=== PATIENT | female | born 1990 | race Caucasian/White ===

== ENCOUNTER 2025-02-07 19:34 | Emergency (ER) | payer OTHER, SELFPAY ==
[2025-02-07 19:35] VITALS: BMI 26.6
[2025-02-07 19:50] VITALS: BP 105/67; PULSE 116; RESP 18; TEMP 37.3; O2SAT 97
--- NOTE | 2025-02-07 19:55 | EDNOTE_ITS ---
ED Weakness RME/HPI General Chief complaint: Weakness Stated complaint: FEELS LETHARGIC , DX WITH KIDNEY STONES SATURDAY Time Seen by Provider: 02/07/25 19:41 Source: patient, RN notes reviewed and old records reviewed Arrival date/time: 02/07/25 19:34 Mode of arrival: ambulatory Limitations: no limitations RME / HPI RME / HPI Narrative: 35yof presents to ED for generalized weakness and nausea that initiated yesterday. Patient reports she was diagnosed with 2mm kidney stone in outside ED 2 days ago. Right flank pain completely resolved, denies any abdominal/flank pain at this time. Reports mild dysuria that initiated this evening. No fever, vomiting or hematuria reported. Denies cough, shortness of breath, chest pain, dizziness or syncope. 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 ?Medication ?Instructions ?Recorded cefdinir 300 mg capsule 300 mg PO BID 10 days #20 ca ps 02/08/25 ondansetron 4 mg disintegrating 4 mg PO Q6H PRN nausea and 02/08/25 tablet vomiting #10 tabs Allergies Allergy/AdvReac Type Severity Reaction Status Date / Time No Known Allergies Allergy Verified 02/07/25 19:39 Review of Systems Review of Systems Systems Reviewed: All systems reviewed, normal except as documented Constitutional Constitutional: Denies chills, Reports fatigue, Denies fever(s) and Reports he adache(s) Comments: Reports generalized weakness ENT Ears, Nose, Mouth, and Throat: Reports headache(s), Denies nasal congestion and Denies vertigo Cardiovascular Cardiovascular: Denies chest pain, Denies dyspnea and Denies syncope Respiratory Respiratory: Denies cough and Denies dyspnea Gastrointestinal Gastrointestinal: Denies abdominal pain, Denies diarrhea, Reports nausea and Denies vomiting Genitourinary Genitourinary: Reports dysuria, Denies flank pain and Denies hematuria Musculoskeletal Musculoskeletal: Reports myalgias Neurologic Neurologic: Reports headache(s), Denies syncope and Denies vertigo Endocrine Endocrine: Reports fatigue Past Medical History Surgical History SURGICAL: Positive Hysterectomy Social History SMOKING STATUS: Never smoker SUBSTANCE USE: does not use ALCOHOL: Never Past Medical History Comments PMH COMMENT: denies pmhx ED Exam General Limitations: Present no limitations General appearance: Present alert and in no apparent distress Head Head exam: Present atraumatic and normocephalic Eye Eye exam: Present normal appearance, PERRL and EOMI ENT ENT exam: Present normal exam and mucous membranes moist Neck Neck exam: Present normal inspection and full ROM Chest Chest inspection: Present normal inspection and symmetric chest wall rise Respiratory Respiratory exam: Present normal lung sounds bilaterally; Absent respiratory distress Cardiovascular Cardiovascular exam: Present normal rhythm and tachycardia (Mild) Abdominal Exam Abdominal exam: Present soft; Absent distention, tenderness, guarding or rebound Extremities Exam Extremities exam: Present normal inspection and full ROM Back Exam Back exam: Absent CVA tenderness (R) or CVA tenderness (L) Neurological Exam Neurological exam: Present alert and oriented X3 Psychiatric Psychiatric exam: Present normal affect and normal mood Skin Skin exam: Present warm, dry, intact and normal color Course Course Course Narrative: 2119: Patient reassessed. Resting comfortably in ED bed, feels a little better. UA negative for infection, 2+ ketones. WBC elevated to 33. This may be related to recent stress response versus dehydration. However will order CXR and CT abdomen/pelvis in setting of recent stone to rule out infection. Lactate, procal and cultures also ordered. 2299: Sepsis called by RN at this time however, patient's lactate is negative. Quality Measures none Orders Category Date Time Status Bedside COVID-19 Antigen Test NOW Care 02/07/25 19:54 Completed Bedside Influenza A&B Antigen Test NOW Care 02/07/25 19:[address] Screening NOW Care 02/07/25 21:23 Completed IV [Insert IV] NOW Care 02/07/25 20:[address] abdomen pelvis w con Stat Exams 02/07/25 21:22 Completed CXR2 [XR chest 2V] Stat Exams 02/07/25 21:22 Completed Blood Culture (Lab) Stat Lab 02/07/25 21:41 Received CBC Stat Lab 02/07/25 20:09 Completed CMP [Comprehensive Metabolic Panel] Stat Lab 02/07/25 20:09 Completed Lactate (Lactic Acid) Stat Lab 02/07/25 21:38 Completed Procalcitonin Stat Lab 02/07/25 21:38 Completed UA [Urinalysis] Stat Lab 02/07/25 20:40 Completed Urine Culture Stat Lab 02/07/25 20:40 Received Acetaminophen Tab [Tylenol ES Tab] Med 02/07/25 20:15 Discontinued 1,000 mg PO X1 ONE Cefdinir [Omnicef] Med 02/08/25 00:12 Discontinued 300 mg PO X1 ONE Ondansetron Inj [Zofran Inj] Med 02/07/25 19:56 Discontinued 4 mg IV X1 ONE Potassium Chloride [K-Dur] Med 02/07/25 20:52 Discontinued 40 meq PO X1 ONE Sodium Chloride 0.9% 1000 ml [Ns] 1,000 ml Med 02/07/25 19:56 Discontinued IV 999 mls/hr Sodium Chloride 0.9% 1000 ml [Ns] 1,000 ml Med 02/07/25 21:30 Discontinued IV 999 mls/hr cephALEXin [Keflex] Med 02/08/25 00:44 Discontinued 500 mg PO X1 ONE Vital Signs Vital signs: Vital Signs Temperature 99.2 F 02/07/25 19:50 Pulse Rate 116 H 02/07/25 19:50 Respiratory Rate 18 02/07/25 19:50 Blood Pressure 105/67 02/07/25 19:50 Pulse Oximetry (%) 97 02/07/25 19:50 Oxygen Delivery Method Room Air 02/07/25 19:50 Weakness MDM Narrative MDM Narrative:: 35yof presents to ED for generalized weakness and nausea that initiated yesterday. Patient reports she was diagnosed with 2mm kidney stone in outside ED 2 days ago. Right flank pain completely resolved, denies any abdominal/flank pain at this time. Reports mild dysuria that initiated this evening. No fever, vomiting or hematuria reported. Denies cough, shortness of breath, chest pain, dizziness or syncope. 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 Updated on all labs and imaging. Will treat for pyelonephritis, UA negative for leuks and nitrates. Patient is nontoxic-appearing, afebrile, vitals are stable. Labs and exam reassuring. Encouraged adequate fluids, symptomatic treatment prn. Stable for discharge, RTED precautions given Patient data External records reviewed:: None (No prior visits) Clinical information provided by:: patient and parent Social determinants that could affect healthcare access:: none Patient has the following chronic illnesses:: None How is presenting disease/condition affected by chronic disease/condition?: no chronic disease Evaluation data The following diagnostics were reviewed and interpreted by me:: lab results and radiology exam(s) Lab and/or radiology exams considered but not ordered:: None Interpretation Summary: lactate 1.1 wbc 33 k 3.2 procal 1.3, mild elevation UA negative leuks/nitrites, 2+ ketones Negative covid/flu CXR: no pneumonia per my read CT abd/pelvis: IMPRESSION: Acute right pyelonephritis, tiny nonobstructing renal calculi No hydronephrosis or ureteral calculi Recommend pelvic sonography to assess septated 6 cm right adnexal cyst Dictated By: Eros Alvarez MD Medications / Prescriptions Medications or Prescriptions considered but not ordered:: None Medication administrations:: Medication Administration History Discontinued Medications Acetaminophen (Acetaminophen 500 Mg Tablet) 1,000 mg PO X1 ONE Stop: 02/07/25 20:16 Last Admin: 02/07/25 20:39 Dose: 1,000 mg Documented By: KF Cefdinir (Cefdinir 250 Mg/5 Ml Ml) 300 mg PO X1 ONE Stop: 02/08/25 00:13 Last Admin: 02/08/25 00:45 Dose: Not Given Documented By: ALICIA Non-Admin Reason: Cancelled by Provider Cephalexin HCl (Cephalexin 250 Mg Capsule) 500 mg PO X1 ONE Stop: 02/08/25 00:45 Last Admin: 02/08/25 00:57 Dose: 500 mg Documented By: ALICIA Sodium Chloride (Ns) 1,000 mls @ 999 mls/hr IV .Q1H1M ONE Stop: 02/07/25 20:56 Last Infusion: 02/07/25 21:20 Dose: Infused Documented By: Admin: 02/07/25 20:14 Dose: 999 mls/hr Documented By: CVL Sodium Chloride (Ns) 1,000 mls @ 999 mls/hr IV .Q1H1M ONE Stop: 02/07/25 22:30 Last Infusion: 02/07/25 23:03 Dose: Infused Documented By: Admin: 02/07/25 21:49 Dose: 999 mls/hr Documented By: ALICIA Ondansetron HCl (Ondansetron Inj 2 Mg/Ml Inj 2 Ml) 4 mg IV X1 ONE; Protocol Stop: 02/07/25 19:57 Last Admin: 02/07/25 20:16 Dose: 4 mg Documented By: CHERRIL Potassium Chloride (Potassium Chloride 20 Meq Tabcr) 40 meq PO X1 ONE Stop: 02/07/25 20:53 Last Admin: 02/07/25 21:09 Dose: 40 meq Documented By: ALICIA Above medications administered in ED Consultations Consultation(s) initiated? (list below): No Diagnosis Weakness Differential Diagnosis: other (UTI, Pyelo, kidney stone, renal colic, COVID, flu, viral illness, pneumonia) Most likely diagnosis given after review of the tests above:: Pyelonephritis Admission Indicated Admission indicated?: not indicated Admission Request Was there a request for admission?: No Disposition Plan Disposition Plan: Discharge Discharge Attestation Discharge Attestation: The patient and all family members were given an opportunity to ask questions and understood the discharge instructions. Discharge instructions specifically effects, indications for sooner follow up or return to the emergency department, and the expected course of current diagnosis. Patient condition: Stable Discharge Plan Plan Patient Disposition: HOME (Self Care) Patient condition on transfer: Stable Prescriptions/Referrals Prescriptions/Med Rec: New cefdinir 300 mg capsule 300 mg PO BID 10 Days Qty: 20 0RF ondansetron 4 mg tablet,disintegrating 4 mg PO Q6H PRN (Reason: nausea and vomiting) Qty: 10 0RF Referrals: Jason Muñoz MD [Primary Care Provider] - In 1 week Problem List Clinical Impression: Pyelonephritis of right kidney, Dehydration Patient/Caregiver Discharge Instructions Education Materials: ED Pyelonephritis, Female (Adult) Print Language: Hungarian Stand Alone Forms: Annie Award Info., Patient Portal Info Letter LAURENCE/DEANNA Supervising Physician LAURENCE/DEANNA Supervising Physician: Brian
[2025-02-07] MEDS: SODIUM CHLORIDE 0.9% 1000 ML 1,000 ML 999 ML IV ×2 (20:14→21:49)
[2025-02-07] MEDS: ONDANSETRON INJ 2 MG/ML INJ 2 ML 4 MG IV (20:16)
[2025-02-07 20:19] LABS: Basophils # (Auto) 0.1 Thou/mm3 (0.0-0.2); Basophils % (Auto) 0 % (0-2.5); Eosinophils % (Auto) 0 % (0-10); Hematocrit 36.9 % (36.0-46.0); Immature Granulocytes % (Auto) 1 % (0-0); Immature Granulocytes Auto 0.37 Thou/mm3 (0.00-0.00); Lymphocytes # (Auto) 1.2 Thou/mm3 (1.0-4.8); Lymphocytes % (Auto) 4 % (10-50); Mean Corpuscular HGB Conc 35.2 g/dl (31.0-37.0); Mean Corpuscular Hemoglobin 30.4 pg (25.0-35.0); Mean Corpuscular Volume 86 fL (80-100); Monocytes # (Auto) 2.7 Thou/mm3 (0.0-0.8); Monocytes % (Auto) 8 % (0-12); Neutrophils # (Auto) 29.2 Thou/mm3 (1.8-7.7); Neutrophils % (Auto) 87 % (37-80); Nucleated Red Blood Cell % 0 /100 WBC (0); Platelet Count 161 Thou/mm3 (140-440); RDW Standard Deviation 40.4 fL (36.4-46.3); Red Blood Count 4.27 Miln/mm3 (4.00-5.20); White Blood Count 33.6 Thou/mm3 (3.6-11.0)
[2025-02-07 20:37] LABS: Alanine Aminotransferase 25 U/L (10-49); Albumin, Serum 4.3 gm/dL (3.5-5.0); Albumin/Globulin Ratio 1.4 (1.2-2.2); Alkaline Phosphatase 75 U/L (46-116); Anion Gap 9 (7-16); Aspartate Amino Transferase 31 U/L (0-34); BUN/Creatinine Ratio 12 Ratio (12-20); Bilirubin,Total 1.2 mg/dL (0.3-1.2); Blood Urea Nitrogen 12 mg/dL (9-23); Calcium 8.7 mg/dL (8.3-10.6); Calcium (Corrected) 8.7 mg/dL (8.5-10.1); Chloride 105 mMol/L (98-107); Estimated Creatinine Clearance 82.4 mL/min (>60); Globulin 3.1 gm/dL (2.3-3.5); Glucose 114 mg/dL (74-106); Osmolality,Calculated 276 (275-295); Potassium 3.2 mMol/L (3.4-5.1); Sodium 138 mMol/L (136-145); Total Protein 7.4 gm/dL (5.7-8.2); eGFR > 60 See Note
[2025-02-07 20:39] VITALS: TEMP 37.3
[2025-02-07] MEDS: ACETAMINOPHEN 500 MG TABLET 1000 MG PO (20:39)
[2025-02-07 20:45] LABS: Collection Type, Urine Clean Catch; WBC,Urine 0 /hpf (0-5)
[2025-02-07] MEDS: POTASSIUM CHLORIDE 20 mEq TABCR 40 MEQ PO (21:09)
[2025-02-07 21:10] LABS: Bacteria,Urine Rare; Bilirubin,Urine Negative (Negative); Blood,Urine 2+ (Negative); Clarity,Urine Turbid (Clear/Hazy); Color,Urine Yellow (Lt Yel-Yel); Glucose, Urine Trace (Negative); Ketones,Urine 2+ (Negative); Leukocyte Esterase,Urine Negative (Negative); Nitrite,Urine Negative (Negative); PH,Urine 5.5 (5.0-7.0); Protein,Urine 2+ (Neg - Trace); RBC,Urine 18 /hpf (0-3); Specific Gravity,Urine 1.033 (1.001-1.035); Squamous Epithelial Cell,Urine 22 /hpf (0-5)
--- NOTE | 2025-02-07 21:22 | XR_ITS ---
Examination: PA and lateral jejunum is Technique portable AP lateral chest 2 views Standing tongue: February 07, 2025 2132 hours INDICATIONS: Weakness flank pain beginning 3 days ago FINDINGS: Normal heart size Lungs are clear. The osseous structures are intact IMPRESSION: No active disease
--- NOTE | 2025-02-07 21:22 | XR_ITS ---
Examination: CT abdomen with intravenous contrast CT pelvis with intravenous contrast 2-D coronal reconstructions 2-D sagittal reconstructions Date and time of exam:February 07, 2025 11:21 PM INDICATIONS: Flank pain and lethargy leukocytosis. Beginning 3 days ago history kidney stones CTDI: vol (mGy) 10.2 DLP: (mGycm) 556 Technique: Multiple axial sections of the abdomen and pelvis have been obtained. 64 slice high-resolution scanner used. 3 mm axial sections have been obtained, post intravenous injection 60 cc Isovue 370 2-D sagittal, coronal reconstructions obtained. Low dose protocols were performed. One or more of the following dose reduction techniques were used; automated exposure control, adjustment of the mA and/or KV according to patient size, use of iterative reconstruction technique. Findings: No focal liver or splenic lesions Mild splenomegaly No gallstones No pancreatic or adrenal mass 1 to 2 mm right renal calculi Multiple areas of edema right kidney with perinephric stranding No hydronephrosis No bowel obstruction Septated 6 cm right adnexal cyst with free fluid in the pelvis Bladder intact IMPRESSION: Acute right pyelonephritis, tiny nonobstructing renal calculi No hydronephrosis or ureteral calculi Recommend pelvic sonography to assess septated 6 cm right adnexal cyst
[2025-02-07 21:47] LABS: Lactate (Lactic Acid) 1.1 mMol/L (0.4-2.0)
--- NOTE | 2025-02-07 23:05 | PC.NURSE ---
PER PROVIDER, PT DOES NOT NEED SEPSIS ALERT INITIATED.
[2025-02-08] MEDS: cephALEXin 250 MG CAPSULE 500 MG PO (00:57)
[2025-02-08 06:06] LABS: Path Review Blood Smear Sent to Pathologist
== END 2025-02-08 01:02 | disposition home or self-care (01) ==
PROVIDERS: Physician Assistant; Emergency Provider Emergency Medicine; PCP Family Medicine
DX: N10 Acute pyelonephritis (principal); E86.0 Dehydration; N20.0 Calculus of kidney
CPT/HCPCS: 36415; 71046; 74177; 80053; 81001; 83605; 84145; 85025; 87040; 87077; 87086; 87186; 87400; 87811; 96361; 96374; 99285; A4649; J2405; J7030; Q9967; A9270

== ENCOUNTER → 2025-03-05 | Outpatient (CLI) | payer OTHER, SELFPAY ==
[2025-03-05 13:46] LABS: Basophils # (Auto) 0.1 Thou/mm3 (0.0-0.2); Basophils % (Auto) 1 % (0-2.5); Eosinophils # (Auto) 0.1 Thou/mm3 (0.0-0.5); Eosinophils % (Auto) 1 % (0-10); Hematocrit 37.6 % (36.0-46.0); Hemoglobin 12.7 g/dL (12.0-16.0); Immature Granulocytes % (Auto) 0 % (0-0); Immature Granulocytes Auto 0.02 Thou/mm3 (0.00-0.00); Lymphocytes # (Auto) 2.3 Thou/mm3 (1.0-4.8); Lymphocytes % (Auto) 35 % (10-50); Mean Corpuscular HGB Conc 33.8 g/dl (31.0-37.0); Mean Corpuscular Hemoglobin 30.3 pg (25.0-35.0); Mean Corpuscular Volume 90 fL (80-100); Monocytes # (Auto) 0.6 Thou/mm3 (0.0-0.8); Monocytes % (Auto) 8 % (0-12); Neutrophils # (Auto) 3.7 Thou/mm3 (1.8-7.7); Neutrophils % (Auto) 55 % (37-80); Nucleated Red Blood Cell % 0 /100 WBC (0); Platelet Count 205 Thou/mm3 (140-440); RDW Standard Deviation 42.4 fL (36.4-46.3); Red Blood Count 4.19 Miln/mm3 (4.00-5.20); White Blood Count 6.7 Thou/mm3 (3.6-11.0)
[2025-03-05 13:49] LABS: Glucose Estimated Average 88 mg/dL (80-131); Hemoglobin A1C 4.7 % Hgb (4.8-6.0)
[2025-03-05 13:52] LABS: Parathyroid Hormone Intact 67.8 pg/ml (18.5-88.0)
[2025-03-05 14:10] LABS: Alanine Aminotransferase < 7 U/L (10-49); Albumin, Serum 4.3 gm/dL (3.5-5.0); Albumin/Globulin Ratio 1.3 (1.2-2.2); Alkaline Phosphatase 77 U/L (46-116); Anion Gap 10 (7-16); Aspartate Amino Transferase 14 U/L (0-34); BUN/Creatinine Ratio 16 Ratio (12-20); Bilirubin,Total 0.9 mg/dL (0.3-1.2); Blood Urea Nitrogen 13 mg/dL (9-23); Calcium 8.7 mg/dL (8.3-10.6); Calcium (Corrected) 8.7 mg/dL (8.5-10.1); Carbon Dioxide 25.2 mMol/L (20.0-31.0); Cardiac Risk Estimate 3.1 RATIO (3.7-5.6); Chloride 108 mMol/L (98-107); Cholesterol 122 mg/dL (132-200); Creatinine (Component) 0.8 mg/dL (0.6-1.3); Globulin 3.3 gm/dL (2.3-3.5); Glucose 84 mg/dL (74-106); HDL Cholesterol 40 mg/dL (40-60); LDL Cholesterol,Calculated 71 mg/dL (0-130); Osmolality,Calculated 284 (275-295); Sodium 143 mMol/L (136-145); Total Protein 7.6 gm/dL (5.7-8.2); Triglycerides 57 mg/dL (30-150); eGFR > 60 See Note
== END | disposition home or self-care (01) ==
LOC: COPL 11:51
PROVIDERS: PCP Family Medicine; Referring Provider Internal Medicine; Visit Provider Internal Medicine
DX: N20.0 Calculus of kidney (principal); N39.0 Urinary tract infection, site not specified; N83.209 Unspecified ovarian cyst, unspecified side; Z83.3 Family history of diabetes mellitus
CPT/HCPCS: 36415; 80053; 80061; 83036; 83970; 84443; 85025